=== PATIENT | male | born 1965 | race Caucasian/White ===

== ENCOUNTER 2017-06-02 20:49 | Emergency (ER) | payer OTHER ==
[2017-06-02 21:01] VITALS: TEMP 98.1; BMI 40.3
--- NOTE | 2017-06-02 21:14 | PDOC ---
History of Present Illness - General History Source: Patient Exam Limitations: No Limitations - History of Present Illness Initial Comments: 06/02/17 21:30 The patient is a 52 year old male with past medical history of kidney stone who presents to the ED with complaints of right sided abdominal pain, nausea and vomiting that began today. The patient states that his symptoms began shortly after ate [place] food followed by some walnuts. He states the pain is only in his right upper quadrant and right lower quadrant and denies any flank pain. He denies any recent fevers, chills, cough, shortness of breath, chest pain, or urinary symptoms. Allergies: None Surgeries: Appendectomy Social history: Denies tobacco, drug, alcohol use PCP: Vick Rosas <Sharona Hancock - Last Filed: 06/03/17 01:18> <Yue Phan - Last Filed: 06/03/17 03:07> - General Chief Complaint: Pain, Acute Stated Complaint: RIGHT SIDE PAIN Time Seen by Provider: 06/02/17 21:12 Past History <Sharona Hancock - Last Filed: 06/03/17 01:18> - Past Medical History Anemia: No Asthma: No Cancer: No Cardiac Disorders: No CVA: No COPD: No CHF: No Dementia: No Diabetes: No GI Disorders: No Disorders: Yes (h/o kidney stones) HTN: No Hypercholesterolemia: No Kidney Stones: Yes Liver Disease: No Seizures: No Thyroid Disease: No - Surgical History Appendectomy: Yes - Immunization History Immunization Up to Date: Yes - Psycho/Social/Smoking Cessation Hx Anxiety: No Suicidal Ideation: No Smoking Status: No Smoking History: Never smoked Have you smoked in the past 12 months: No Number of Cigarettes Smoked Daily: 0 Information on smoking cessation initiated: No Hx Alcohol Use: No Drug/Substance Use Hx: No Substance Use Type: None Hx Substance Use Treatment: No <Yue Phan - Last Filed: 06/03/17 03:07> - Past Medical History Allergies/Adverse Reactions: Allergies Allergy/AdvReac Type Severity Reaction Status Date / Time No Known Allergies Allergy Verified 06/02/17 21:03 Home Medications: Ambulatory Orders No Home Medications 0 dose .ROUTE UTDICT 06/22/12 Levofloxacin [Levaquin -] 500 mg PO DAILY #5 tablet 07/30/15 Metronidazole [Flagyl -] 500 mg PO TID #18 tablet 07/30/15 Oxycodone HCl/Acetaminophen [Percocet 5/325 -] 1 tab PO Q4H PRN #30 tablet 07/30 Ketorolac Tromethamine [Toradol] 10 mg PO Q6H PRN #20 tablet MDD 4 tabs Levofloxacin [Levaquin -] 500 mg PO DAILY #7 tablet 06/03/17 Tamsulosin HCl [Flomax] 0.4 mg PO DAILY #7 capsule 06/03/17 Review of Systems - Review of Systems Able to Perform ROS?: Yes Comments:: 06/02/17 21:30 CONSTITUTIONAL: Absent: fever, chills, diaphoresis, generalized weakness, malaise, loss of appetite HEENT: Absent: rhinorrhea, nasal congestion, throat pain, throat swelling, difficulty swallowing, mouth swelling, ear pain, eye pain, visual Changes CARDIOVASCULAR: Absent: chest pain, syncope, palpitations, irregular heart rate, lightheadedness , peripheral edema RESPIRATORY: Absent: cough, shortness of breath, dyspnea with exertion, orthopnea, wheezing, stridor, hemoptysis GASTROINTESTINAL: Present: abdominal pain, nausea, vomiting Absent: abdominal distension, diarrhea, constipation, melena, hematochezia GENITOURINARY: Absent: dysuria, frequency, urgency, hesitancy, hematuria, flank pain, genital pain MUSCULOSKELETAL: Absent: myalgia, arthralgia, joint swelling SKIN: Absent: rash, itching, pallor HEMATOLOGIC/IMMUNOLOGIC: Absent: easy bleeding, easy bruising, lymphadenopathy, frequent infections ENDOCRINE: Absent: unexplained weight gain, unexplained weight loss, heat intolerance, cold intolerance NEUROLOGIC: Absent: headache, focal weakness or paresthesias, dizziness, unsteady gait, seizure, mental status changes, bladder or bowel incontinence PSYCHIATRIC: Absent: anxiety, depression, suicidal or homicidal ideation, hallucinations. All Other Systems: Reviewed and Negative <Sharona Hancock - Last Filed: 06/03/17 01:18> *Physical Exam - Vital Signs Last Vital Signs Temp Pulse Resp BP Pulse Ox 98.1 F 64 18 174/104 100 06/02/17 20:56 06/02/17 20:56 06/02/17 20:56 06/02/17 20:56 06/02/17 20:56 - Physical Exam Comments: 06/02/17 21:32 GENERAL: Well developed, well nourished. Awake and alert. No acute distress. HEENT: Normocephalic, atraumatic. PERRLA, EOMI. No conjunctival pallor. Sclera are non- icteric. Moist mucous membranes. Oropharynx is clear. NECK: Supple. Full ROM. No JVD. Carotid pulses 2+ and symmetric, without bruits. No thyromegaly. No lymphadenopathy. CARDIOVASCULAR: Regular rate and rhythm. No murmurs, rubs, or gallops. Distal pulses are 2+ and symmetric. PULMONARY: No evidence of respiratory distress. Lungs clear to auscultation bilaterally. No wheezing, rales or rhonchi. ABDOMINAL: Soft. Non-tender. Non-distended. No rebound or guarding. No organomegaly. Normoactive bowel sounds. MUSCULOSKELETAL Normal range of motion at all joints. No bony deformities or tenderness. No CVA tenderness. EXTREMITIES: No cyanosis. No clubbing. No edema. No calf tenderness. SKIN: Warm and dry. Normal capillary refill. No rashes. No jaundice. NEUROLOGICAL: Alert, awake, appropriate. Cranial nerves 2-12 intact. No deficits to light touch and temperature in face, upper extremities and lower extremities. No motor deficits in the in face, upper extremities and lower extremities. Normoreflexic in the upper and lower extremities. Normal speech. Toes are down-going bilaterally. Gait is normal without ataxia. PSYCHIATRIC: Cooperative. Good eye contact. Appropriate mood and affect. <Sharona Hancock - Last Filed: 06/03/17 01:18> - Vital Signs Last Vital Signs Temp Pulse Resp BP Pulse Ox 98.1 F 64 18 174/104 100 06/02/17 20:56 06/02/17 20:56 06/02/17 20:56 06/02/17 20:56 06/02/17 20:56 <Yue Phan - Last Filed: 06/03/17 03:07> Heart Score/ECG Review - ECG Intrepretation Comment:: 06/03/17 01:19 ECG obtained at 1:12 normal sinus at 79 bpm cannot rule out anterior age infarct <Sharona Hancock - Last Filed: 06/03/17 01:18> ED Treatment Course - LABORATORY CBC & Chemistry Diagram: 06/02/17 23:44 06/02/17 23:30 <Sharona Hancock - Last Filed: 06/03/17 01:18> - LABORATORY CBC & Chemistry Diagram: 06/02/17 23:44 06/02/17 23:30 <Yue Phan - Last Filed: 06/03/17 03:07> Medical Decision Making - Medical Decision Making 06/03/17 03:05 52-year-old male came in the right flank pain, nausea and vomiting. Urinalysis shows hematuria but no infection Creatinine was 1.2 CAT scan of the abdomen and pelvis revealed 3 mm kidney stone on the right with hydroureter and hydronephrosis Patient does not have a fever, increased no longer vomiting and he has no problems urinating Impression kidney stone with moderate hydronephrosis. Plan follow up with his primary physician, take his Flomax, pain medicine and antibiotics. Urology referral was written in case his symptoms do not resolve Patient told to return if he develops fever, persistent vomiting or worsening pain <Yue Phan - Last Filed: 06/03/17 03:07> *DC/Admit/Observation/Transfer - Attestations Scribe Attestion: 06/02/17 21:32 Documentation prepared by Sharona Hancock, acting as medical library assistant for Yue Phan MD. <Sharona Hancock - Last Filed: 06/03/17 01:18> <Yue Phan - Last Filed: 06/03/17 03:07> Diagnosis at time of Disposition: Kidney stone on right side, Hydroureter on right - Discharge Dispostion Condition at time of disposition: Stable - Prescriptions Prescriptions: Tamsulosin HCl [Flomax] 0.4 mg PO DAILY #7 capsule Levofloxacin [Levaquin -] 500 mg PO DAILY #7 tablet Ketorolac Tromethamine [Toradol] 10 mg PO Q6H PRN #20 tablet MDD 4 tabs PRN Reason: Severe Pain - Referrals Referrals: Vick Rosas MD [Primary Care Provider] - Mary Rosas MD [Staff Physician] - Gene Escamilla MD [Staff Physician] - Sylvester Medina MD [Staff Physician] - - Patient Instructions Printed Discharge Instructions: DI for Kidney Stones Additional Instructions: 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
[2017-06-02] MEDS ORDERED: SODIUM CHLORIDE 1,000 ML IV STA (21:15)
[2017-06-02] MEDS ORDERED: KETOROLAC TROMETHAMINE 30 MG/1 ML VIAL IVPUSH ONE (21:15)
[2017-06-02] MEDS ORDERED: ONDANSETRON 4 MG/2 ML VIAL IVPUSH ONE (21:15)
[2017-06-02] MEDS ORDERED: morphine CARPU-JECT 2 MG/1 ML DISP.SYRIN IVPUSH ONE (21:17)
[2017-06-02] MEDS ORDERED: morphine CARPU-JECT 4 MG/1 ML DISP.SYRIN ONE (21:54)
[2017-06-02] MEDS ORDERED: KETOROLAC TROMETHAMINE 30 MG/1 ML VIAL ONE (21:54)
[2017-06-02] MEDS ORDERED: ONDANSETRON 4 MG/2 ML VIAL ONE (21:55)
[2017-06-02 22:33] LABS: URINE APPEARANCE CLEAR; URINE BILIRUBIN NEGATIVE (NEGATIVE); URINE BLOOD 3+ (NEGATIVE); URINE COLOR YELLOW; URINE GLUCOSE (UA) NEGATIVE (NEGATIVE); URINE KETONE TRACE (NEGATIVE); URINE LEUK ESTERASE NEGATIVE (NEGATIVE); URINE NITRITE NEGATIVE (NEGATIVE); URINE UROBILINOGEN NEGATIVE mg/dL (0.2-1.0)
[2017-06-02 23:14] LABS: URINE PROTEIN 1+ (NEGATIVE)
[2017-06-02 23:26] LABS: INR 1.09 (0.82-1.09)
[2017-06-02 23:30] LABS: URINE MUCUS RARE; URINE RBC 235 /hpf (0-3); URINE WBC 3 /hpf (3-5)
[2017-06-02] MEDS ORDERED: HYDROmorphone HCL CARPU-JECT 1 MG/1 ML DISP.SYRIN IVPUSH ONE (23:46)
[2017-06-03 00:01] LABS: MCH 30.4 pg (25.7-33.7); MCHC 34.1 g/dl (32.0-35.9); MEAN CELL VOLUME 89.2 fl (80-96); MEAN PLT VOLUME 6.9 fl (7.5-11.1); PLATELET COUNT 274 K/MM3 (134-434); RDW 13.1 % (11.9-15.9); WHITE BLOOD COUNT 14.1 K/mm3 (4.0-10.0)
[2017-06-03 00:11] LABS: ALK PHOS 71 U/L (45-117); ANION GAP 8 (8-16); BILIRUBIN,TOTAL 0.4 mg/dL (0.2-1.0); CALCIUM 8.4 mg/dL (8.5-10.1); CO2 30 mmol/L (21-32); CREATININE 1.2 mg/dL (0.7-1.3); GLUCOSE,RANDOM 136 mg/dL (74-106); SGOT/AST 17 U/L (15-37); SGPT/ALT 26 U/L (12-78); TOT PROT 7.6 g/dl (6.4-8.2)
[2017-06-03 00:13] LABS: CPK 111 IU/L (39-308); TROPONIN I < 0.02 ng/ml (0.00-0.05)
[2017-06-03] MEDS ORDERED: HYDROmorphone HCL CARPU-JECT 1 MG/1 ML DISP.SYRIN ONE (00:24)
[2017-06-03 00:30] VITALS: BP 162/96; PULSE 80
[2017-06-03] MEDS ORDERED: SODIUM CHLORIDE 1,000 ML IV STA (00:41)
[2017-06-03] MEDS ORDERED: TAMSULOSIN HCL 0.4 MG CAP.ER.24H (FP) PO ONE (02:36)
[2017-06-03] MEDS ORDERED: CIPROFLOXACIN 500 MG TABLET (RESTRICTED TO ID) PO ONE (02:45)
[2017-06-03] MEDS ORDERED: LEVOFLOXACIN 500 MG TABLET (FP) PO ONE (02:47)
[2017-06-03] MEDS ORDERED: LEVOFLOXACIN 500 MG TABLET (FP) ONE (03:00)
[2017-06-03] MEDS ORDERED: TAMSULOSIN HCL 0.4 MG CAP.ER.24H (FP) ONE (03:00)
--- NOTE | 2017-06-03 14:41 | EKG ---
Test Reason : Blood Pressure : / mmHG Vent. Rate : 082 BPM Atrial Rate : 082 BPM P-R Int : 194 ms QRS Dur : 092 ms QT Int : 390 ms P-R-T Axes : 048 002 018 degrees QTc Int : 455 ms NORMAL SINUS RHYTHM NORMAL ECG WHEN COMPARED WITH ECG OF 28-JUL-2015 21:34, NO SIGNIFICANT CHANGE WAS FOUND Confirmed by NORMAN GIRALDO MD ([id number]) on 06/03/2017 2:41:21 PM Referred By: Confirmed By:NORMAN GIRALDO MD
--- NOTE | 2017-06-05 09:34 | EKG ---
Test Reason : Blood Pressure : / mmHG Vent. Rate : 079 BPM Atrial Rate : 079 BPM P-R Int : 196 ms QRS Dur : 090 ms QT Int : 378 ms P-R-T Axes : 040 001 018 degrees QTc Int : 433 ms NORMAL SINUS RHYTHM CANNOT RULE OUT ANTERIOR INFARCT , AGE UNDETERMINED ABNORMAL ECG WHEN COMPARED WITH ECG OF 02-JUN-2017 22:35, NO SIGNIFICANT CHANGE WAS FOUND Confirmed by DEACON BARAJAS MD ([id number]) on 06/05/2017 9:33:28 AM Referred By: Confirmed By:DEACON BARAJAS MD
== END 2017-06-03 03:20 | disposition home or self-care (01) ==
LOC: JER 20:49
PROC: 3E0333Z Introduction of Anti-inflammatory into Peripheral Vein, Percutaneous Approach (ICD-10-PCS; principal; 2017-06-02)
PROC: 3E033NZ Introduction of Analgesics, Hypnotics, Sedatives into Peripheral Vein, Percutaneous Approach (ICD-10-PCS; 2017-06-02)
PROC: 3E033GC Introduction of Other Therapeutic Substance into Peripheral Vein, Percutaneous Approach (ICD-10-PCS; 2017-06-02)
PROC: 3E0337Z Introduction of Electrolytic and Water Balance Substance into Peripheral Vein, Percutaneous Approach (ICD-10-PCS; 2017-06-02)
DX: N20.0 Calculus of kidney (principal); N13.4 Hydroureter; Z87.442 Personal history of urinary calculi
CPT/HCPCS: 36415; 74177-TC; 80053; 81003; 81015; 84484; 85025; 85610; 87086; 93005; 93010; 99283-25